=== PATIENT | female | born 1960 | race Hispanic/Latino ===

== ENCOUNTER 2016-07-11 12:19 | Emergency (ER) | payer MEDICAID ==
[2016-07-11 13:26] LABS: Bilirubin,Urine Negative (Negative); Ketones,Urine Negative (Negative)
[2016-07-11 13:27] LABS: Blood,Urine MOD (Negative)
[2016-07-11 13:30] LABS: Leukocyte Esterase,Urine MOD (Negative); Nitrite,Urine Positive (Negative); WBC,Urine > 182.0 /HPF (0.0-6.0)
[2016-07-11] MEDS ORDERED: NORCO 5/325 PO ONE (13:48)
[2016-07-11] MEDS ORDERED: XYLOCAINE 1% MPF 5 mL INFILTRATI ONE (13:48)
[2016-07-11] MEDS ORDERED: ZOFRAN ODT PO ONE (13:48)
[2016-07-11] MEDS ORDERED: ROCEPHIN IM ONE (13:48)
--- NOTE | 2016-07-11 14:48 | Emergency Department Report ---
Entered by LORENA LEON, acting as scribe for JESUS MANUEL CASTRO NP. ED Female HPI - General Chief complaint: Urogenital-Female Stated complaint: POSS UTI Time Seen by Provider: 07/11/16 13:18 Source: patient Mode of arrival: Ambulatory Limitations: No Limitations - History of Present Illness Initial comments: 56 y/o female with PMHx of anxiety and depression, present to the ED c/o dysuria beginning 3-4 days ago. Associated symptoms include subjective fever and chills, back pain, frequency, nausea and vomiting but denies abdominal pain , vaginal discharge and vaginal bleeding. She describes the pain as "burning" and rates it 5/10 in severity. Patient took goody's [employer] with no relief. She denies having similar symptoms in the past. NKDA. PT states 4 days ago, she noticed urinary frequency, then dysuria, and now dysuria and urinary retention PT states she made an appointment with PCP but could not get an appointment until 07-23-16 Complaint: dysuria Onset/Timin -: Gradual, days(s) Radiation: non-radiating Severity: mild Severity scale (0 -10): 5 Improves with: none Worsens with: urination Associated Symptoms: nausea/vomiting, fever/chills, dysuria, other (back pain). denies: vaginal discharge, vaginal bleeding, abdominal pain - Related Data Previous Rx's Medication Instructions Recorded Last Taken Type Ibuprofen [Motrin] 600 mg PO Q8H PRN #15 tablet 07/11/16 Unknown Rx Nitrofurantoin [place]/M-Cryst 100 mg PO Q12HR #14 capsule 07/11/16 Unknown Rx [Macrobid CAP] Phenazopyridine [Pyridium] 200 mg PO TID #6 tab 07/11/16 Unknown Rx Allergies Allergy/AdvReac Type Severity Reaction Status Date / Time No Known Allergies Allergy Unverified 07/11/16 12:46 ED Review of Systems Comment: All other systems reviewed and negative Constitutional: chills, fever (subjective, yesterday ) Gastrointestinal: nausea (yesterday ), vomiting (x 1 yesterday ). denies: abdominal pain Genitourinary: as per HPI, dysuria, frequency. denies: other (vaginal bleeding and vaginal discharge) Musculoskeletal: back pain (Pt states she has a hx of back pain ) ED Past Medical Hx - Past Medical History Hx Psychiatric Treatment: Yes (anxiety, depression) - Surgical History Additional Surgical History: ovaries - Social History Smoking Status: Current Every Day Smoker Substance Use Type: None - Medications Home Medications: Home Medications Medication Instructions Recorded Confirmed Last Taken Type Ibuprofen [Motrin] 600 mg PO Q8H PRN #15 tablet 07/11/16 Unknown Rx Nitrofurantoin [place]/M-Cryst 100 mg PO Q12HR #14 capsule 07/11/16 Unknown Rx [Macrobid CAP] Phenazopyridine [Pyridium] 200 mg PO TID #6 tab 07/11/16 Unknown Rx ED Physical Exam - General Limitations: No Limitations General appearance: alert, in no apparent distress, obese - Head Head exam: Present: atraumatic, normocephalic - Eye Eye exam: Present: normal appearance, PERRL, EOMI Pupils: Present: normal accommodation - ENT ENT exam: Present: normal exam, mucous membranes moist, normal external ear exam - Neck Neck exam: Present: normal inspection, full ROM - Respiratory Respiratory exam: Present: normal lung sounds bilaterally. Absent: wheezes, rales, rhonchi, chest wall tenderness - Cardiovascular Cardiovascular Exam: Present: regular rate, normal rhythm, normal heart sounds - GI/Abdominal GI/Abdominal exam: Present: soft, normal bowel sounds. Absent: tenderness, guarding, rebound - Extremities Exam Extremities exam: Present: normal inspection, full ROM. Absent: tenderness - Back Exam Back exam: Present: normal inspection, full ROM. Absent: tenderness, CVA tenderness (R), CVA tenderness (L), muscle spasm, paraspinal tenderness, vertebral tenderness - Neurological Exam Neurological exam: Present: alert, oriented X3 - Psychiatric Psychiatric exam: Present: normal affect, normal mood - Skin Skin exam: Present: warm, dry, intact ED Course Vital Signs 07/11/16 07/11/16 12:46 15:19 Temperature 98.8 F Pulse Rate 105 H 87 Respiratory 18 20 Rate Blood Pressure 144/78 Blood Pressure 137/76 [Left] O2 Sat by Pulse 96 95 Oximetry VS improved on recheck - Reevaluation(s) Reevaluation #1: 07/11/16 14:25 PT states she is feeling better. PT has no questions at this time. - Pulse Oximetry Interpretation Digit-Finger Initial Pulse Oximetry Readin Actions Taken: none ED Medical Decision Making - Lab Data Labs 07/11/16 12:59 Urine Color Luly Urine Turbidity Turbid Urine pH 5.0 Ur Specific [place] 1.018 Urine Protein 100 mg/dl Urine Glucose (UA) 50 Urine Ketones Negative Urine Blood Mod Urine Nitrite Positive Urine Bilirubin Negative Urine Urobilinogen 4.0 Ur Leukocyte Esterase Mod Urine WBC (Auto) > 182.0 H Urine RBC (Auto) 152.0 Urine HCG, Qual Negative - Differential Diagnosis uti, pyleonephritis Critical Care Time: No ED Disposition Clinical Impression: UTI (urinary tract infection) Qualifiers: Urinary tract infection type: site unspecified Hematuria presence: with hematuria Qualified Code(s): N39.0 - Urinary tract infection, site not specified ; R31.9 - Hematuria, unspecified Disposition: DISCHARGED TO HOME OR SELFCARE Is pt being admited?: No Does the pt Need Aspirin: No Condition: Stable Instructions: Urinary Tract Infection in Women (ED) Additional Instructions: Keep your appointment with Dr Mcfarland - your urine may need to be repeated. Also, today you have a small amount of glucose in your urine, your PCP may want to do labs to evaluate for diabetes. A urine culture has been ordered today, we should have results in 3-5 days. Take all of your antibiotics Return to ED if worsening or concerns Prescriptions: Ibuprofen [Motrin] 600 mg PO Q8H PRN #15 tablet PRN Reason: Pain Nitrofurantoin [place]/M-Cryst [Macrobid CAP] 100 mg PO Q12HR #14 capsule Phenazopyridine [Pyridium] 200 mg PO TID #6 tab Referrals: MELBA COOPER MD [Primary Care Provider] - 3-5 Days Time of Disposition: 14:29 This documentation as recorded by the EDWARD larson ELIZABETH,accurately reflects the service I personally performed and the decisions made by me,JESUS MANUEL CASTRO NP.
[2016-07-11 15:20] VITALS: BP 137/76
[2016-07-11 16:52] LABS: Bacteria,Urine 4+ /HPF (Negative)
== END 2016-07-11 15:23 | disposition home or self-care (01) ==
LOC: ED 12:19
DX: N39.0 Urinary tract infection, site not specified (principal); R31.9 Hematuria, unspecified; F32.9 Major depressive disorder, single episode, unspecified; F41.9 Anxiety disorder, unspecified; F17.200 Nicotine dependence, unspecified, uncomplicated
CPT/HCPCS: 81001; 81025; 87086; 96372; 99283; J0696; Q0162

== ENCOUNTER 2020-08-09 17:19 | Emergency (ER) | payer MEDICAID ==
[2020-08-09 18:01] LABS: Bilirubin,Urine NEG (Negative); Blood,Urine SM (Negative); Color,Urine Straw (Yellow); Protein,Urine <15 mg/dL mg/dL (Negative); Urobilinogen,Urine < 2.0 mg/dL (<2.0)
[2020-08-09 18:03] LABS: WBC,Urine < 1.0 /HPF (0.0-6.0)
--- NOTE | 2020-08-09 18:44 | Emergency Department Report ---
- General Chief Complaint: Urogenital-Female Stated Complaint: HEAD/CHEST COLD/BLOOD IN URINE Source: patient Mode of arrival: Ambulatory Limitations: No Limitations - History of Present Illness Initial Comments: Patient is a 60-year-old white female with a history of thm-jdqnpys-uzbyvawpo diabetes, chronic osteoarthritis, anxiety and depression who presents to the ED with complaint of acute onset persistent nasal and sinus congestion, frontal sinus pressure, persistent dry cough for the last 4 days. Patient also states that she noticed a pinkish colored urine about 8 hours ago and decided come to [facility] ED for evaluation. Patient states that she has been taking [id number] medications for nasal congestion with no relief. Patient denies fever, chills, nausea, vomiting, chest pain, shortness of breath, abdominal pain, dysuria, urinary frequency and urgency, dizziness, syncope, change in vision or diarrhea. MD Complaint: cough, sore throat, rhinorrhea, nasal congestion, sinus pain -: Sudden, days(s) (4) Severity: severe Severity scale (0 -10): 7 Quality: sharp, aching Consistency: constant Improves With: nothing Worsens With: nothing Context: sick contacts Associated Symptoms: denies other symptoms, headache, rhinorrhea, nasal congestion, sore throat, cough. denies: fever, chills, myalgias, diaphoresis, stiff neck, chest pain, shortness of breath, abdominal pain, nausea, diarrhea, dysuria, rash, confusion, right sweats, epistaxis, hoarseness, ear pain, other Treatments Prior to Arrival: "cold medicine" - Related Data Previous Rx's Medication Instructions Recorded Last Taken Type Ibuprofen [Motrin] 600 mg PO Q8H PRN #15 tablet 07/11/16 Unknown Rx Nitrofurantoin [place]/M-Cryst 100 mg PO Q12HR #14 capsule 07/11/16 Unknown Rx [Macrobid CAP] Phenazopyridine [Pyridium] 200 mg PO TID #6 tab 07/11/16 Unknown Rx Azithromycin [Zithromax Z-RAMON] 250 mg PO DAILY #6 tablet 08/09/20 Unknown Rx Benzonatate [Tessalon Perles] 100 mg PO Q8HR #30 capsule 08/09/20 Unknown Rx Cetirizine HCl [Zyrtec 10mg tab] 10 mg PO DAILY #30 tablet 08/09/20 Unknown Rx predniSONE [Deltasone] 40 mg PO QDAY #10 tab 08/09/20 Unknown Rx Allergies Allergy/AdvReac Type Severity Reaction Status Date / Time No Known Allergies Allergy Verified 08/09/20 17:22 ED Review of Systems ROS: Stated complaint: HEAD/CHEST COLD/BLOOD IN URINE Other details as noted in HPI Constitutional: denies: chills, fever Eyes: denies: eye pain, eye discharge, vision change ENT: throat pain, congestion, other (Frontal sinus pressure). denies: ear pain Respiratory: cough. denies: shortness of breath, wheezing Cardiovascular: denies: chest pain, palpitations Endocrine: no symptoms reported Gastrointestinal: denies: abdominal pain, nausea, diarrhea Genitourinary: hematuria. denies: urgency, dysuria, discharge Musculoskeletal: denies: back pain, joint swelling, arthralgia Skin: denies: rash, lesions Neurological: denies: headache, weakness, paresthesias Psychiatric: denies: anxiety, depression Hematological/Lymphatic: denies: easy bleeding, easy bruising ED Past Medical Hx - Past Medical History Hx Diabetes: Yes Hx Arthritis: Yes Hx Psychiatric Treatment: Yes (anxiety, depression) - Surgical History Additional Surgical History: ovaries - Social History Smoking Status: Current Every Day Smoker Substance Use Type: None - Medications Home Medications: Home Medications Medication Instructions Recorded Confirmed Last Taken Type Ibuprofen [Motrin] 600 mg PO Q8H PRN #15 tablet 07/11/16 Unknown Rx Nitrofurantoin [place]/M-Cryst 100 mg PO Q12HR #14 capsule 07/11/16 Unknown Rx [Macrobid CAP] Phenazopyridine [Pyridium] 200 mg PO TID #6 tab 07/11/16 Unknown Rx Azithromycin [Zithromax Z-RAMON] 250 mg PO DAILY #6 tablet 08/09/20 Unknown Rx Benzonatate [Tessalon Perles] 100 mg PO Q8HR #30 capsule 08/09/20 Unknown Rx Cetirizine HCl [Zyrtec 10mg tab] 10 mg PO DAILY #30 tablet 08/09/20 Unknown Rx predniSONE [Deltasone] 40 mg PO QDAY #10 tab 08/09/20 Unknown Rx ED Physical Exam - General Limitations: No Limitations General appearance: alert, in no apparent distress - Head Head exam: Present: atraumatic, normocephalic, normal inspection - Eye Eye exam: Present: normal appearance, PERRL, EOMI Pupils: Present: normal accommodation - ENT ENT exam: Present: normal orophraynx, mucous membranes moist, TM's normal bilaterally, normal external ear exam, other (Grossly congested nasal passages) - Neck Neck exam: Present: normal inspection, full ROM - Respiratory Respiratory exam: Present: normal lung sounds bilaterally. Absent: respiratory distress, wheezes, rales, stridor, chest wall tenderness, accessory muscle use, decreased breath sounds, prolonged expiratory - Cardiovascular Cardiovascular Exam: Present: regular rate, normal rhythm, normal heart sounds. Absent: systolic murmur, diastolic murmur, rubs, gallop - GI/Abdominal GI/Abdominal exam: Present: soft, normal bowel sounds. Absent: tenderness, guarding, rebound, hyperactive bowel sounds, hypoactive bowel sounds, organomeg carl - Extremities Exam Extremities exam: Present: normal inspection, full ROM, normal capillary refill - Back Exam Back exam: Present: normal inspection, full ROM. Absent: tenderness, CVA tenderness (R), CVA tenderness (L), muscle spasm, paraspinal tenderness, vertebral tenderness - Neurological Exam Neurological exam: Present: alert, oriented X3, CN II-XII intact, normal gait, reflexes normal - Psychiatric Psychiatric exam: Present: normal affect, normal mood - Skin Skin exam: Present: warm, dry, intact, normal color. Absent: rash ED Course Vital Signs 08/09/20 17:26 Temperature 98.7 F Pulse Rate 87 Respiratory 20 Rate Blood Pressure 173/77 O2 Sat by Pulse 96 Oximetry ED Medical Decision Making - Medical Decision Making This is a 60-year-old white female with a history of ree-pvmmliy-zbdxxtthc diabetes, chronic osteoarthritis, anxiety and depression who presents to the ED with complaint of acute onset persistent nasal and sinus congestion, frontal sinus pressure, persistent dry cough for the last 4 days. Patient also states that she noticed a pinkish colored urine about 8 hours ago and decided come to the ED for evaluation. Patient states that she has been taking fgmy-vsl-gxoaawb medications for nasal congestion with no relief. In the ED, patient is alert and oriented x3 and is not in any distress. Urinalysis is unremarkable. Patient was discharged home on medications based on the history and physical exam findings. Patient was advised to follow-up with her primary care physician in 5 to 7 days for reevaluation. Patient advised return to the ED immediately if symptoms get worse. - Differential Diagnosis Sinusitis; URI; bronchitis; pharyngitis; UTI Critical care attestation.: If time is entered above; I have spent that time in minutes in the direct care of this critically ill patient, excluding procedure time. ED Disposition Clinical Impression: Acute upper respiratory infection Acute bronchitis Qualifiers: Bronchitis organism: other organism Qualified Code(s): J20.8 - Acute bronchitis due to other specified organisms Disposition: TO HOME OR SELFCARE Is pt being admited?: No Does the pt Need Aspirin: No Condition: Stable Instructions: Acute Bronchitis (ED), Upper Respiratory Infection, Adult, Itpq-[id number], Acute Bronchitis, Adult, [id number] Additional Instructions: Take medication with food, drink plenty of fluids and follow-up with your primary care physician in 7 to 10 days for reevaluation. Return to the ED immediately if symptoms get worse. Prescriptions: predniSONE [Deltasone] 40 mg PO QDAY #10 tab Benzonatate [Tessalon Perles] 100 mg PO Q8HR #30 capsule Azithromycin [Zithromax Z-RAMON] 250 mg PO DAILY #6 tablet Cetirizine HCl [Zyrtec 10mg tab] 10 mg PO DAILY #30 tablet Referrals: SAMMY BEE MD [Staff Physician] - 3-5 Days Time of Disposition: 18:41 Print Language: URDU
[2020-08-09 19:03] VITALS: BP 140/77
== END 2020-08-09 19:01 | disposition home or self-care (01) ==
LOC: ED 17:19
DX: J20.9 Acute bronchitis, unspecified (principal); J06.9 Acute upper respiratory infection, unspecified; E11.9 Type 2 diabetes mellitus without complications; M19.91 Primary osteoarthritis, unspecified site; F41.9 Anxiety disorder, unspecified; F17.200 Nicotine dependence, unspecified, uncomplicated; Z98.890 Other specified postprocedural states; Z79.1 Long term (current) use of non-steroidal anti-inflammatories (NSAID); Z79.899 Other long term (current) drug therapy
CPT/HCPCS: 81001